=== PATIENT | female | born 1950 | race Caucasian/White ===

== ENCOUNTER → 2018-07-11 14:34 | Outpatient (CLI) | payer OTHER, SELFPAY ==
--- NOTE | 2018-07-11 14:38 | BI_ITS ---
MAMMOGRAPHY - BILATERAL SCREENING REASON FOR EXAM: Female, 67 years old. Routine annual screening examination. PERTINENT HISTORY: Sisters with breast cancer. Grandmother with breast cancer. Remote left excisional breast biopsy. TECHNIQUE: Digital bilateral breast moon (3D mammographic acquisition) in the CC and MLO projections. 2-D mediolateral oblique (MLO) and craniocaudad (CC) views of both breasts were obtained. CAD: Full Field Digital Mammography with Computer Added Detection was performed. COMPARISON: Comparison is made with prior study dated July 12, 2015 and December 29, 2013. FINDINGS: Breast Composition: There are scattered areas of fibroglandular density. The previously seen subcentimeter nodule in the right breast has resolved. There now is evidence of a 8.6 mm x 7.2 mm well-defined nodule in the slightly upper lateral portion of the left breast. Correlation with ultrasound is recommended. No other significant abnormalities are identified. BI/SCREENING MAMM (CAD), BILAT IMPRESSION: 8.6 mm x 7.2 mm well-defined nodule in the slightly upper lateral portion of the left breast as described. Correlation with ultrasound is recommended. ASSESSMENT CATEGORY: BIRADS Category 0: Incomplete. Need additional imaging evaluation. A letter regarding these results will be sent to the patient by the facility within 30 days. Approximately 10% of breast cancers are not detected by mammography. A normal mammogram should not delay biopsy of a clinically suspicious abnormality. [id number] Electronically Signed: Antoni Duque MD at 9:07 EST Tel [phone], Service support ,
== END ==
DX: Z12.31 Encounter for screening mammogram for malignant neoplasm of breast (principal)
CPT/HCPCS: 77063; 77067

== ENCOUNTER → 2019-01-09 | Outpatient (CLI) | payer SELFPAY ==
--- NOTE | 2019-01-09 10:42 | US_ITS ---
STUDY: ULTRASOUND BREAST - LEFT REASON FOR EXAM: Female, 68 years old. Abnormal screening mammogram. TECHNIQUE: Axial and longitudinal images of the LEFT breast were performed with a high resolution ultrasound transducer. COMPARISON: Comparison is made with prior mammogram dated July 11, 2018. FINDINGS: LEFT Breast: The mammographic abnormality corresponds to a 6 mm x 7 mm x 5 mm cyst at the 3:00 position of the breast at 3 cm from the nipple. US/Breast Limited Unilateral IMPRESSION: 6 mm x 7 mm x 5 mm cyst at the 3:00 position of the breast at 3 cm from the nipple. ASSESSMENT CATEGORY: BIRADS Category 2: Benign. A letter regarding these results will be sent to the patient by the facility within 30 days. Electronically Signed: Antoni Duque, at 13:20 EDT , Service support ,
== END | disposition home or self-care (01) ==
LOC: OPUS 10:37
DX: N63.21 Unspecified lump in the left breast, upper outer quadrant (principal)
CPT/HCPCS: 76642